=== PATIENT | female | born 1995 | race Caucasian/White ===

== ENCOUNTER 2017-07-24 16:34 | Emergency (ER) | payer SELFPAY ==
--- NOTE | 2017-07-24 17:33 | ED ---
Throat Pain/Nasal Congestion - HPI Summary HPI Summary: 21F presents with sore throat since last night. She denies any fevers, ear pain , sinus congestions, chest pain, SOB, nausea, vomiting, abdominal pain. She admits to a productive cough. she denies any history of strept or mono. She denies any one else being sick. She has not taken anything for her pain. - History of Current Complaint Chief Complaint: EDThroatPain Time Seen by Provider: 07/24/17 17:04 - Allergies/Home Medications Allergies/Adverse Reactions: Allergies Allergy/AdvReac Type Severity Reaction Status Date / Time No Known Allergies Allergy Verified 07/24/17 16:43 PMH/Surg Hx/FS Hx/Imm Hx Endocrine/Hematology History: Denies: Hx Anticoagulant Therapy Respiratory History: Reports: Hx Asthma Infectious Disease History: No Infectious Disease History: Denies: Traveled Outside the [place] in Last 30 Days - Family History Known Family History: Positive: Respiratory Disease - Social History Alcohol Use: None Substance Use Type: Reports: None Smoking Status (MU): Never Smoked Tobacco Review of Systems Negative: Fever Positive: Sore Throat Negative: Chest Pain Positive: Cough. Negative: Shortness Of Breath All Other Systems Reviewed And Are Negative: Yes Physical Exam Triage Information Reviewed: Yes Vital Signs On Initial Exam: Initial Vitals Temp Pulse Resp BP Pulse Ox 98.9 F 109 20 108/78 93 07/24/17 16:43 07/24/17 16:43 07/24/17 16:43 07/24/17 16:43 07/24/17 16:43 Vital Signs Reviewed: Yes Appearance: Positive: Well-Appearing Skin: Positive: Warm, Dry Head/Face: Positive: Normal Head/Face Inspection Eyes: Positive: Normal, EOMI, KHALIDA, Conjunctiva Clear ENT: Positive: Pharyngeal erythema, TMs normal, Tonsillar swelling, Other - uvula midline, soft palate symmetric. Negative: Tonsillar exudate, Trismus, Muffled/hoarse voice Neck: Positive: Supple, Nontender, No Lymphadenopathy Respiratory/Lung Sounds: Positive: Clear to Auscultation, Breath Sounds Present Cardiovascular: Positive: Normal, RRR Abdomen Description: Positive: Nontender, Soft Bowel Sounds: Positive: Present Diagnostics - Vital Signs Vital Signs Temp Pulse Resp BP Pulse Ox 07/24/17 16:43 98.9 F 109 20 108/78 93 - Laboratory Lab Statement: Any lab studies that have been ordered have been reviewed, and results considered in the medical decision making process. EENT Course/Dx - Course Course Of Treatment: 21F presents with sore throat since last night. She denies any fevers, ear pain, sinus congestions, chest pain, SOB, nausea, vomiting, abdominal pain. She admits to a productive cough. she denies any history of strept or mono. She denies any one else being sick. She has not taken anything for her pain. on exam tonsils+1, erythema to pharnyx, uvula midline, soft palate symmetric. strept neg. will treat with decadron and magic mouth wash. patient understands and agrees with plan. - Differential Diagnoses Differential Diagnoses: Pharyngitis, Tonsilitis, URI/Bronchitis - Diagnoses Provider Diagnoses: Pharyngitis Discharge - Discharge Plan Condition: Good Disposition: HOME Prescriptions: Dexamethasone TAB* [Decadron TAB*] 4 mg PO DAILY #4 tab Magic Mouth Was-JACQUI/MAAL/LIDO* 5 ml SWISH SPIT QID #100 ml Patient Education Materials: Pharyngitis (ED) Referrals: [facility] [Outside] Additional Instructions: Magic mouthwash 5ml swish and spit can use 4x a day Take steroid once a day for 5 days Take Tylenol or ibuprofen for pain every 6 hours Use saline spray in nose as much as needed Use humidifier in room or can use warm water in bowls Can gargle salt water Can use cough drops or products such as cloraseptic spray Establish care with primary care physician Return to ED if develop any new or worsening symptoms
[2017-07-24] MEDS ORDERED: Dexamethasone TAB* 4 MG PO ONE (18:00)
[2017-07-24 18:13] VITALS: BP 103/71
== END 2017-07-24 18:16 | disposition home or self-care (01) ==
LOC: ED 16:34
DX: J02.9 Acute pharyngitis, unspecified (principal); J45.909 Unspecified asthma, uncomplicated
CPT/HCPCS: 87651; 99282; J8540